=== PATIENT | male | born 1975 | race Caucasian/White ===

== ENCOUNTER 2020-09-03 16:54 | Emergency (ER) | payer BC, OTHER ==
[~2020-09-03] VITALS: Ht 195.6 cm; Wt 104.3 kg
[2020-09-03 17:01] VITALS: BP 129/79
[2020-09-03] MEDS ORDERED: bacitracin 15gm ointment TP ONE (17:35)
[2020-09-03] MEDS ORDERED: TETanus/Pertussis (Acell)/Diphther VAC/PF (Tdap-Adult) 0.5ml syringe IMVAC ONE (17:35)
[2020-09-03] MEDS ORDERED: LIDOcaine 1% W/epiNEPHrine 1:200,000 10ml vial IJ ONE (17:35)
[2020-09-03] MEDS ORDERED: LIDOcaine 1% w/epiNEPHrine 1:200,000 30ml vial IJ ONE (17:45)
== END 2020-09-03 18:20 | disposition home or self-care (01) ==
LOC: ER 16:55
DX: S60.454A Superficial foreign body of right ring finger, initial encounter (principal); W45.8XXA Other foreign body or object entering through skin, initial encounter; Y93.89 Activity, other specified; Y92.89 Other specified places as the place of occurrence of the external cause; Y99.8 Other external cause status
CPT/HCPCS: 10120; 90471; 90715; 99285